=== PATIENT | female | born 1980 | race Two or more races ===

== ENCOUNTER 2018-06-13 22:12 | Outpatient (CLI) | payer OTHER ==
[2018-06-13] MEDS ORDERED: SYNTHROID175 MCG PO (22:29)
[2018-06-13] MEDS ORDERED: PRENATABS RX T1 EACH PO (22:29)
[2018-06-13] MEDS ORDERED: ASA81 MG PO (22:29)
[2018-06-13] MEDS ORDERED: PROGESTERONA IM (22:31)
== END 2018-06-14 10:14 | disposition home or self-care (01) ==
LOC: OBS/DEL 22:12
DX: O60.03 Preterm labor without delivery, third trimester (principal); Z34.83 Encounter for supervision of other normal pregnancy, third trimester

== ENCOUNTER 2018-07-20 21:26 | Outpatient (CLI) | payer OTHER ==
[~2018-07-20 21:26] MED LIST: ASA81 MG PO; PRENATABS RX T1 EACH PO; PROGESTERONA IM; SYNTHROID175 MCG PO
== END 2018-07-21 21:43 | disposition home or self-care (01) ==
LOC: OBS/DEL 21:26
DX: O60.03 Preterm labor without delivery, third trimester (principal); Z34.83 Encounter for supervision of other normal pregnancy, third trimester

== ENCOUNTER 2018-08-11 07:21 | Inpatient (IN) | payer OTHER ==
[~2018-08-11] VITALS: Ht 162.6 cm; Wt 94.3 kg
== END 2018-08-14 17:09 | disposition home or self-care (01) | DRG 785 ==
LOC: LDR 07:21 → OB/GYN 07:21 → O/R 17:23 → OB/GYN 20:40
PROVIDERS: ADMIT Obstetrics & Gynecology
PROC: 0UL70ZZ Occlusion of Bilateral Fallopian Tubes, Open Approach (ICD-10-PCS; 2018-08-11)
PROC: 3E033VJ Introduction of Other Hormone into Peripheral Vein, Percutaneous Approach (ICD-10-PCS; 2018-08-11)
PROC: 4A1HXCZ Monitoring of Products of Conception, Cardiac Rate, External Approach (ICD-10-PCS; 2018-08-11)
PROC: 10D00Z1 Extraction of Products of Conception, Low, Open Approach (ICD-10-PCS; principal; 2018-08-11 15:30)
DX: O76 Abnormality in fetal heart rate and rhythm complicating labor and delivery (principal); Z3A.38 38 weeks gestation of pregnancy; Z37.0 Single live birth; Z22.330 Carrier of Group B streptococcus; O99.284 Endocrine, nutritional and metabolic diseases complicating childbirth; E03.8 Other specified hypothyroidism; Z30.2 Encounter for sterilization

== ENCOUNTER 2022-10-03 08:45 | Inpatient (IN) | payer OTHER ==
[~2022-10-03] VITALS: Ht 152.4 cm; Wt 101.2 kg
== END 2022-10-12 09:15 | disposition home or self-care (01) | DRG 918 ==
LOC: SURG 10-08 08:45 → O/R 10-08 09:42 → ICU 10-09 01:38 → SURH 10-11 16:20
PROVIDERS: ADMIT Obstetrics & Gynecology; ATTEND Obstetrics & Gynecology
PROC: 0BH17EZ Insertion of Endotracheal Airway into Trachea, Via Natural or Artificial Opening (ICD-10-PCS; 2022-10-08)
PROC: 5A1955Z Respiratory Ventilation, Greater than 96 Consecutive Hours (ICD-10-PCS; 2022-10-08)
PROC: 3E0F7GC Introduction of Other Therapeutic Substance into Respiratory Tract, Via Natural or Artificial Opening (ICD-10-PCS; 2022-10-08)
PROC: 4A033R1 Measurement of Arterial Saturation, Peripheral, Percutaneous Approach (ICD-10-PCS; principal; 2022-10-08 09:30)
DX: T88.59XA Other complications of anesthesia, initial encounter (principal); J81.1 Chronic pulmonary edema; T41.295A Adverse effect of other general anesthetics, initial encounter; D25.9 Leiomyoma of uterus, unspecified; Y92.234 Operating room of hospital as the place of occurrence of the external cause; Z53.9 Procedure and treatment not carried out, unspecified reason; Z20.822 Contact with and (suspected) exposure to COVID-19; Y69 Unspecified misadventure during surgical and medical care